=== PATIENT | female | born 1960 | race Native Hawaiian/Other Pacific Islander ===

== ENCOUNTER 2017-08-22 20:51 | Observation (INO) | payer OTHER ==
--- NOTE | 2017-08-22 21:56 | ED Physician Documentation ---
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 She developed substernal chest pain radiating to the back that is mostly gone now. It started around 4 PM. She has never had this before. There is no pedal edema or calf pain. Note made that she is allergic to aspirin and lisinopril and therefore these medications are held.) Review of Systems Ten Systems: 10 systems reviewed and negative Constitutional: reports: Reviewed and negative Nose: reports: Reviewed and negative Cardiac: reports: Reviewed and negative PD PAST MEDICAL HISTORY - Past Medical History Cardiovascular: Other Neuro: None HEENT: None Musculoskeletal: Osteoarthritis - Past Surgical History Past Surgical History: Yes Cardiovascular: AICD - Present Medications Home Medications: Ambulatory Orders Medication Instructions Recorded Confirmed Carvedilol [Coreg] 25 mg PO BID 02/09/14 04/19/14 Simvastatin [Zocor] 20 mg PO QPM 02/09/14 04/19/14 - Allergies Allergies/Adverse Reactions: Allergies Allergy/AdvReac Type Severity Reaction Status Date / Time aspirin Allergy Edema Verified 08/22/17 21:04 lisinopril Allergy Edema Verified 08/22/17 21:04 - Social History Does the pt smoke?: No Smoking Status: Never smoker Does the pt drink ETOH?: No Does the pt have substance abuse?: No - Family History Family history: reports: Non contributory PD ED PE NORMAL - Vitals Vital signs reviewed: Yes - General General: No acute distress, Other (She seems a little slow, probably from the previous anoxic brain injury. She is pleasant. Most of the history is from the .) - HEENT HEENT: PERRL, EOMI - Neck Neck: Supple, no meningeal sign, No bony TTP, No JVD - Cardiac Cardiac: RRR, No murmur - Respiratory Respiratory: No respiratory distress, Clear bilaterally - Abdomen Abdomen: Soft, Non tender - Back Back: No CVA TTP, No spinal TTP - Derm Derm: Normal color, Warm and dry - Extremities Extremities: No edema, No calf tenderness / cord - Neuro Neuro: Alert and oriented X 3, Normal speech - Psych Psych: Normal mood, Normal affect Results - Vitals Vitals: Vital Signs - 24 hr 08/22/17 20:55 Temperature 36.8 C Heart Rate 69 Respiratory 19 Rate Blood Pressure 146/100 H O2 Saturation 100 Oxygen O2 Source Room air - EKG (time done) 2131 Rate: Rate (enter#) (61) Rhythm: NSR Jenera: LAD Intervals: Other (Looks like an incomplete right bundle branch block) Ischemia: Normal ST segments - Labs Labs: Laboratory Tests 08/22/17 08/22/17 08/22/17 21:20 21:20 21:20 WBC 10.5 RBC 5.94 H Hgb 11.8 L Hct 38.3 MCV 64.5 L MCH 19.9 L MCHC 30.8 L RDW 15.9 H Plt Count 245 MPV 8.7 Neut # 6.9 H Lymph # 2.2 Gibson # 0.7 Eos # 0.6 Baso # 0.1 Absolute Nucleated RBC 0.00 Nucleated RBC % 0.0 Manual Slide Review Indicated WBC Morphology NORMAL APPEARANCE Platelet Estimate NORMAL (130-450,000) Platelet Morphology NORMAL APPEARANCE RBC Morph Micro Appear 3+ MICROCYTOSIS PT 11.3 INR 1.0 Sodium Potassium Chloride Carbon Dioxide Anion Gap BUN Creatinine Estimated GFR (MDRD) Glucose Calcium Total Bilirubin AST ALT Alkaline Phosphatase Troponin I 0.07 Total Protein Albumin Globulin Albumin/Globulin Ratio Lipase 08/22/17 21:20 WBC RBC Hgb Hct MCV MCH MCHC RDW Plt Count MPV Neut # Lymph # Gibson # Eos # Baso # Absolute Nucleated RBC Nucleated RBC % Manual Slide Review WBC Morphology Platelet Estimate Platelet Morphology RBC Morph Micro Appear PT INR Sodium 136 Potassium 4.1 Chloride 101 Carbon Dioxide 27 Anion Gap 8.0 BUN 14 Creatinine 0.5 Estimated GFR (MDRD) 127 Glucose 143 H Calcium 9.0 Total Bilirubin < 0.2 L AST 27 ALT 34 Alkaline Phosphatase 63 Troponin I Total Protein 7.9 Albumin 4.2 Globulin 3.7 Albumin/Globulin Ratio 1.1 Lipase 19 L - Rads (name of study) 1v chest Radiology: EMP read contemporaneously (NAD, AICD in place) PD MEDICAL DECISION MAKING - ED course ED course: 56-year-old woman with history of cardiac arrest and anoxic brain injury due to Takutsobus cardiomyopathy presents with improving nonsevere chest pain. Troponin is indeterminant but on the low end of did not determined. Given her risk factors etc. she will be placed in observation, spoke with the hospitalist , Dr. Graff for observation at 9:55 PM. Departure - Departure Disposition: ED Place in Observation Clinical Impression: Chest pain Qualifiers: Chest pain type: unspecified Qualified Code(s): R07.9 - Chest pain, unspecified Condition: Good
[2017-08-22 22:07] LABS: BASOPHILS # (AUTO) 0.1 10^3/uL (0.0-0.1); BASOPHILS % (AUTO) 0.9 %; EOSINOPHILS # (AUTO) 0.6 10^3/uL (0.0-0.7); EOSINOPHILS % (AUTO) 5.5 %; HGB - HEMOGLOBIN 11.8 g/dL (12.0-16.0); LYMPHOCYTES # (AUTO) 2.2 10^3/uL (1.5-3.5); LYMPHOCYTES % (AUTO) 21.2 %; MEAN CORPUSCULAR HEMOGLOBIN 19.9 pg (27.0-31.0); MEAN CORPUSCULAR HGB CONC 30.8 g/dL (32.0-36.0); MEAN CORPUSCULAR VOLUME 64.5 fL (81.0-99.0); MEAN PLATELET VOLUME 8.7 fL (7.9-10.8); MONOCYTES # (AUTO) 0.7 10^3/uL (0.0-1.0); MONOCYTES % (AUTO) 7.1 %; NEUTROPHILS # (AUTO) 6.9 10^3/uL (1.5-6.6); NEUTROPHILS % (AUTO) 65.3 %; PLT - PLATELET COUNT 245 10^3/uL (130-450); RED BLOOD COUNT 5.94 10^6/uL (4.20-5.40); RED CELL DISTRIBUTION WIDTH 15.9 % (12.0-15.0); WHITE BLOOD COUNT 10.5 x10^3/uL (4.8-10.8)
[2017-08-22 22:11] LABS: PT - PROTHROMBIN TIME 11.3 secs (9.9-12.6)
[2017-08-22 22:13] LABS: ALBUMIN 4.2 g/dL (3.2-5.5); ALBUMIN/GLOBULIN RATIO 1.1 (1.0-2.2); ALKALINE PHOSPHATASE 63 IU/L (42-121); ALT ALANINE AMINOTRANSFERASE 34 IU/L (10-60); AST ASPARTATE AMINOTRANSFERASE 27 IU/L (10-42); BILIRUBIN,TOTAL < 0.2 mg/dL (0.2-1.0); BUN - BLOOD UREA NITROGEN 14 mg/dL (6-20); CARBON DIOXIDE - CO2 27 mmol/L (21-32); CHLORIDE 101 mmol/L (101-111); CREATININE 0.5 mg/dL (0.4-1.0); GFR - MDRD 127 (>89); GLUCOSE 143 mg/dL (70-100); LIPASE 19 U/L (22-51); SODIUM 136 mmol/L (135-145); TOTAL PROTEIN 7.9 g/dL (6.7-8.2)
[2017-08-22 22:18] LABS: PLATELET ESTIMATE, MANUAL NORMAL (130-450,000) (NORMAL); PLATELET MORPHOLOGY NORMAL APPEARANCE (NORMAL); RBC MORPHOLOGY (MULTIPLE) 3+ MICROCYTOSIS (NORMAL)
--- NOTE | 2017-08-22 22:19 | XRAY Report ---
EXAM: CHEST RADIOGRAPHY EXAM DATE: 08/22/2017 10:03 PM. CLINICAL HISTORY: CHEST PAIN. COMPARISON: 07/05/2015. TECHNIQUE: 1 view. FINDINGS: Lungs/Pleura: No focal pneumonia or edema. No pleural effusion or pneumothorax. Mediastinum: Heart size not enlarged. No mediastinal shift. Other: Stable left pacemaker/AICD. IMPRESSION: No acute process seen in the chest. [facility] Referring Provider Line: [phone] SITE ID: [id number]
[2017-08-22] MEDS ORDERED: HYDROmorphone 1 MG/ML SYRINGE IVP PRN (22:27)
[2017-08-22] MEDS ORDERED: ACETAMINOPHEN 325 MG TABLET PO PRN (22:27)
[2017-08-22] MEDS ORDERED: ONDANSETRON 4 MG/2 ML VIAL IVP PRN (22:27)
[2017-08-22] MEDS ORDERED: SODIUM CHLORIDE FLUSH 0.9% 10 ML SYRINGE IVP PRN (22:27)
[2017-08-22] MEDS ORDERED: TEMAZEPAM 15 MG CAPSULE PO PRN (22:27)
[2017-08-22] MEDS ORDERED: CARVEDILOL 25 MG PO SCH (22:30)
[2017-08-22] MEDS ORDERED: CARVEDILOL 12.5 MG TABLET PO SCH (23:00)
[2017-08-22] MEDS ORDERED: IOPAMIDOL-300 100 ML VIAL ONE (23:41)
[2017-08-23] MEDS ORDERED: IOPAMIDOL-300 100 ML VIAL IVP ONE (00:14)
--- NOTE | 2017-08-23 00:39 | CT Preliminary Report ---
Exam: CT CHEST ANGIO (AORTA) IMPRESSION: 1. Negative CT angiogram of the chest. No acute aortic syndrome. 2. No pulmonary emboli. [facility] SITE ID: [id number]
--- NOTE | 2017-08-23 00:46 | CT Report ---
EXAM: CT ANGIOGRAM CHEST EXAM DATE: 08/23/2017 12:20 AM. CLINICAL HISTORY: Chest pain to back, evaluate aorta for aneurysm or dissection. COMPARISONS: None. TECHNIQUE: Prior to and following intravenous administration of 80 mL Isovue 300, multiplanar 3D/MIP reconstruction of the thoracic aorta was performed. In accordance with CT protocol optimization, one or more of the following dose reduction techniques w ere utilized for this exam: automated exposure control, adjustment of mA and/or KV based on patient s ize, or use of iterative reconstructive technique. FINDINGS: Vascular Structures: No aortic intramural hematoma, dissection, or aneurysm. No significant atheroscl erotic disease. Aortic branch vessels of the chest and upper abdomen are widely patent. No pulmonary emboli identified. Lungs/Pleura: No pneumonia or edema. No suspicious nodules. No effusions or pneumothorax. Mediastinum: No cardiac enlargement. No adenopathy. Upper Abdomen: Unremarkable. Other: None. IMPRESSION: 1. Negative CT angiogram of the chest. No acute aortic syndrome. 2. No pulmonary emboli. [facility] Referring Provider Line: [phone] SITE ID: [id number]
[2017-08-23] MEDS: SODIUM CHLORIDE FLUSH 0.9% 10 ML SYRINGE IVP SCH ×2 (01:28→08:50)
--- NOTE | 2017-08-23 02:57 | HISTORY & PHYSICAL EXAMINATION ---
DATE OF SERVICE: 08/22/2017 Physician: Ana Torres MD HISTORY OF PRESENT ILLNESS: This is a 56-year-old, white female who has a history of Takotsubo cardiomyopathy. She had suffered a cardiac arrest in 2005, the Takotsubo was probably found after that, and she has been implanted with an automatic defibrillator that has never needed to go off. The patient has suffered anoxic brain damage because of the cardiac arrest. The patient nor the know if there is still apical ballooning or if there is a decreased ejection fraction or how much damage was done to the heart, and there have been no echocardiograms done here at this facility. The patient developed chest pain across her anterior chest, radiating through to her mid back that occurred when she was sitting and resting, associated with mild nausea, but no vomiting. No other associated factors such as radiation to the neck or arms or shortness of breath. She called her at worked and he came home. The episode stopped after 30-60 minutes. She had another episode and, with this, he brought her to the emergency room. This one also subsided after about an hour. She rated the discomfort as "severe." She currently is having mild discomfort rated < 5/10, mostly in her back only. She has never had symptoms like this before. There are no new medications, no travel, no trauma. PAST MEDICAL HISTORY: Takotsubo cardiomyopathy and cardiac arrest, and now has a defibrillator, and there was anoxic brain damage with the cardiac arrest. REVIEW OF SYSTEMS: A comprehensive review of systems was performed and the pertinent positives are as above, all the rest are negative. FAMILY HISTORY: Early family history of coronary artery disease in her mother, who from this. No other inherited diseases. SOCIAL HISTORY: She is a nonsmoker who never smoked, drinks no alcohol or use illicit drugs. She is not working. ALLERGIES 1. ASPIRIN. 2. LISINOPRIL. MEDICATIONS 1. Coreg 25 p.o. b.i.d. 2. Zocor 20 mg at bedtime. PHYSICAL EXAMINATION GENERAL: Middle-aged female of descent. VITAL SIGNS: Blood pressure 146/100, heart rate 60-69 in sinus rhythm with rare PVCs, afebrile, room air saturation 100%. HEENT: Unremarkable. NECK: No JVD or carotid bruits. CHEST: Clear. HEART: Heart sounds normal. No murmur or gallop. No heave. ABDOMEN: Soft, nontender. Positive bowel sounds. EXTREMITIES: No clubbing, cyanosis, or edema. NEUROLOGIC: She has a tremor of the hands, which apparently has been there for 30 years. She is slow to respond with answers, but is appropriate and has no slurring of speech. LABORATORIES: Normal electrolytes, normal BUN and creatinine. Magnesium 2.0. Normal liver tests. Troponin 0.07. Lipase normal. CBC shows a white count of 10.5, hemoglobin 11.8, MCV very low at 64.5, platelet count normal at 245. INR normal at 1.0. Chest x-ray: No acute pulmonary disease. EKG: Normal sinus rhythm. There is excessive baseline wander, making it difficult to evaluate, but there is probable right IVCD, poor R-wave progression and anterolateral T- wave flattening. There is no old EKG available for comparison. IMPRESSION/DIAGNOSES 1. Atypical chest pain for angina. 2. Takotsubo cardiomyopathy. 3. Status post defibrillator. 4. Anoxic brain damage after a cardiac arrest. 5. Anemia with low MCV. PLAN: Place the patient in observation statusto evaluate chest pain. Start telemetry. Check troponins, since the first one is minimally elevated, to rule out OR. Follow her EKG for ischemic changes. Obtain lipid panel and treat per guidelines. Obtain an Echo to evaluate her Takotsubo history and her current EF. Obtain a CT angio of the chest to rule out aortic pathology such as aneurysm or dissection, given the fact that the pain radiates through to her back. Because the position of the pain in the back is at the lower diaphragm, I also recommend ultrasound evaluation of her gallbladder and pancreas if her CT has no obvious abnormality. DEEP VENOUS THROMBOSIS PROPHYLAXIS: Lovenox. CODE STATUS: FULL CODE. ATTESTATION: The patient is expected to be discharged or transferred to another facility within 96 hours: Yes. TD: 08/23/2017 02:57 SANTANA
[2017-08-23 07:37] VITALS: BP 125/64
[2017-08-23 07:37] LABS: BUN - BLOOD UREA NITROGEN 11 mg/dL (6-20); CARBON DIOXIDE - CO2 24 mmol/L (21-32); CHLORIDE 104 mmol/L (101-111); CHOL/HDL RATIO 3.2 (<4.4); CHOLESTEROL 166 mg/dL; CREATININE 0.7 mg/dL (0.4-1.0); GFR - MDRD 86 (>89); GLUCOSE 134 mg/dL (70-100); HDL CHOLESTEROL 52 mg/dL; LDL CHOLESTEROL,CALCULATED 106 mg/dL; SODIUM 136 mmol/L (135-145); VLDL CHOLESTEROL 8 mg/dL
[2017-08-23] MEDS ORDERED: NITROGLYCERIN 2% PASTE TOP SCH (08:00)
[2017-08-23] MEDS ORDERED: HEPARIN 5,000 UNIT/ML VIAL IVP ONE (08:06)
[2017-08-23] MEDS ORDERED: HEPARIN 5,000 UNIT/ML VIAL IVP SCH ×2 (08:06→08:25)
--- NOTE | 2017-08-23 08:24 | DISCHARGE SUMMARY ---
Discharge Summary Admit Date: 08/23/17 Discharge Date: 08/23/17 Discharging Provider: JENNIFER Lwas Primary Care Provider: Dr. Blake Franco-cardiology Code Status: Attempt Resuscitation Condition at Discharge: Good Discharge Disposition: 02 Transfer Acute Care Hosp Discharge Facility Name: [facility] under the care of Dr. Jessenia Corea - DIAGNOSES Admission Diagnoses: Other chest pain (R07.89) Takotsubo syndrome (I51.81) Presence of automatic (implantable) cardiac defibrillator (Z95.810) Anoxic brain damage, not elsewhere classified (G93.1) Discharge Diagnoses with Status of Each Condition: Other chest pain (R07.89) improved, stable at the time of transfer. Non-ST elevation (NSTEMI) myocardial infarction (I21.4) acute, new on this admission. Confirmed with elevated troponins. Takotsubo syndrome (I51.81) chronic, stable. Echocardiogram pending. Anoxic brain damage, not elsewhere classified (G93.1) chronic, stable. Patient delayed, but functional and A & O x4. Presence of automatic (implantable) cardiac defibrillator (Z95.810) chronic, stable. See Dr. Blake Franco-cardiology at [facility]. - HPI History of Present Illness: Krysten Lacy is a 56-year old female with a past medical history of Takotsubo cardiomyopathy and suffered a cardiac arrest in 2005, the Takotsubo was probably found after that, and she has been implanted with an AICD. The patient has suffered anoxic brain damage due to the cardiac arrest. The patient nor her know if there is still apical ballooning or if there is a decreased EF or how much damage was done to the heart. There have been no echocardiograms done here. The patient developed chest pain across her anterior chest, radiating through her mid back that occurred when she was sitting and resting. Associated symptoms include mild nausea, no vomiting, no radiation or shortness of breath. She called her at work and he came home. The episode stopped after 30-60 minutes. She had another episode and, with this, he brought her to the ED. She continued to have 5 out of 10 pain located mid-chest and back. She has never had symptoms like this before. There have been no new medications, no trauma, and no recent travel. She will be admitted to observation and monitored on telemetry, with serial troponins and an echocardiogram. - HOSPITAL COURSE Hospital Course: The patient had a flat T-wave on EKG. A chest CT was completed and negative for dissection, a bedside echocardiogram was completed and showed isolated akinetic apical ballooning and a preserved EF as a preliminary finding. Serial troponins confirmed a rule in NSTEMI with a troponin starting at 0.07, then increased to 0.22, and the final value is pending. Patient continued to have chest discomfort that is improved to a 2-3 out of 10 and continues to radiate to her back. She has been started on a heparin gtt, given nitropaste, put on a beta srini and awaiting transport to [place] under the care of Dr. Jessenia Corea-cardiology. She is considered to be hemodynamically stable at the time of transport using ACLS services. - ALLERGIES Allergies/Adverse Reactions: Allergies Allergy/AdvReac Type Severity Reaction Status Date / Time aspirin Allergy Edema Verified 08/22/17 21:04 lisinopril Allergy Edema Verified 08/22/17 21:04 - MEDICATIONS Home Medications: Ambulatory Orders Medication Instructions Recorded Confirmed Carvedilol [Coreg] 25 mg PO BID 02/09/14 04/19/14 Simvastatin [Zocor] 20 mg PO QPM 02/09/14 04/19/14 Carvedilol [Coreg] 25 mg PO BID tablet 08/23/17 Nitroglycerin [Nitrostat] 0.4 mg SL Q5MIN PRN tablet 08/23/17 - PHYSICAL EXAM AT DISCHARGE General Appearance: positive: No acute distress, Alert, Anxious Eyes Bilateral: positive: Normal inspection, PERRL ENT: positive: ENT inspection nml, Pharynx nml, No signs of dehydration Neck: positive: Nml inspection, Thyroid nml, No JVD, Trachea midline Respiratory: positive: Chest non-tender, No respiratory distress Cardiovascular: positive: Regular rate & rhythm, Bradycardia, Systolic murmur, Decreased pulse(s) Peripheral Pulses: positive: 1+ Abdomen: positive: Non-tender, No organomegaly, Nml bowel sounds Back: positive: Nml inspection Skin: positive: Color nml, No rash, Warm, Diaphoresis Extremities: positive: Non-tender, Full ROM, Nml appearance, No pedal edema Neurologic/Psychiatric: positive: Oriented x3, CN's nml (2-12), Motor nml, Sensation nml, Depressed mood/affect, Other (delayed, but very functional and A & O x4.) Reflexes: Bicep (R): 3+, Bicep (L): 3+ - LABS Result Diagrams: 08/22/17 21:20 08/23/17 03:01 - DIAGNOSTIC IMAGING Diagnostic Imaging Results: Final report reviewed Diagnostic Imaging Results Comments: EXAM: CT ANGIOGRAM CHEST EXAM DATE: 08/23/2017 12:20 AM. CLINICAL HISTORY: Chest pain to back, evaluate aorta for aneurysm or dissection. COMPARISONS: None. TECHNIQUE: Prior to and following intravenous administration of 80 mL Isovue 300 , multiplanar 3D/MIP reconstruction of the thoracic aorta was performed. In accordance with CT protocol optimization, one or more of the following dose reduction techniques were utilized for this exam: automated exposure control, adjustment of mA and/or KV based on patient size, or use of iterative reconstructive technique. FINDINGS: Vascular Structures: No aortic intramural hematoma, dissection, or aneurysm. No significant atherosclerotic disease. Aortic branch vessels of the chest and upper abdomen are widely patent. No pulmonary emboli identified. Lungs/Pleura: No pneumonia or edema. No suspicious nodules. No effusions or pneumothorax. Mediastinum: No cardiac enlargement. No adenopathy. Upper Abdomen: Unremarkable. Other: None. IMPRESSION: 1. Negative CT angiogram of the chest. No acute aortic syndrome. 2. No pulmonary emboli. EXAM: CHEST RADIOGRAPHY EXAM DATE: 08/22/2017 10:03 PM. CLINICAL HISTORY: CHEST PAIN. COMPARISON: 07/05/2015. TECHNIQUE: 1 view. FINDINGS: Lungs/Pleura: No focal pneumonia or edema. No pleural effusion or pneumothorax. Mediastinum: Heart size not enlarged. No mediastinal shift. Other: Stable left pacemaker/AICD. IMPRESSION: No acute process seen in the chest. ECHOCARDIOGRAM was completed but pending at the time of this report 08/23/17 @ 0900. - FOLLOW UP Follow Up: Follow up with PCP within one week of this stay. - TIME SPENT Time Spent in Discharge (Minutes): 50
[2017-08-23] MEDS ORDERED: NITROGLYCERIN SL 0.4 MG TABLET SL PRN (08:25)
[2017-08-23] MEDS ORDERED: HEPARIN DRIP CARDIAC @ 12 UNITS/KG/HR IV SCH (08:28)
[2017-08-23] MEDS ORDERED: HEPARIN BOLUS PRN PER PROTOCOL IVP (08:38)
--- NOTE | 2017-08-23 08:43 | Discharge Plan ---
Discharge Plan Disposition: 02 Transfer Acute Care Hosp Condition: Good Diet: Cardiac Activity Restrictions: Activity as Tolerated Shower Restrictions: No Driving Restrictions: No Weight Bearing: Full Weight Additional Instructions or Follow Up instructions: [facility] No Smoking: If you smoke, Please STOP! Call for help.
[2017-08-23] MEDS ORDERED: POLYETHYLENE GLYCOL 3350 17 GM PACKET PO SCH (09:00)
[2017-08-23] MEDS ORDERED: FAMOTIDINE 20 MG TABLET PO SCH (09:00)
[2017-08-23] MEDS ORDERED: CARVEDILOL 12.5 MG TABLET PO SCH (09:00)
[2017-08-23] MEDS ORDERED: ENOXAPARIN 40 MG/0.4 ML SYRINGE SUBQ SCH (09:00)
[2017-08-23] MEDS ORDERED: PERFLUTREN LIPID MICROSPHERES 1.65 MG/1.5 ML VIAL IVP ONE (09:42)
[2017-08-23] MEDS ORDERED: NON FORMULARY MED (Simvastatin [Zocor] 20 MG) PO SCH (21:00)
[2017-08-23] MEDS ORDERED: ATORVASTATIN 10 MG TABLET PO SCH (21:00)
== END 2017-08-23 11:25 | disposition short-term general hospital (02) ==
LOC: ED 20:51 → OBS 22:27
PROVIDERS: ADMIT Internal Medicine; ATTEND Nurse Practitioner
DX: I21.4 Non-ST elevation (NSTEMI) myocardial infarction (principal); I51.81 Takotsubo syndrome; G93.1 Anoxic brain damage, not elsewhere classified; Z95.810 Presence of automatic (implantable) cardiac defibrillator; Z86.74 Personal history of sudden cardiac arrest; Z79.899 Other long term (current) drug therapy
CPT/HCPCS: 36415; 71045; 71275; 80048; 80053; 80061; 83690; 83735; 84484; 85025; 85610; 93005; 93306; 96372; 96374; 99283; 99285; A9270; G0378; J1170; Q9957; Q9967; 83721; 99284

== ENCOUNTER 2017-08-23 11:25 | Outpatient (CLI) | payer OTHER | END 2017-08-23 11:26 | disposition short-term general hospital (02) | LOC: EMS 11:25 | PROVIDERS: ATTEND Surgery | DX: I20.0 Unstable angina (principal) | CPT/HCPCS: A0425; A0426 ==

== ENCOUNTER 2017-08-25 18:44 | Emergency (ER) | payer OTHER ==
[2017-08-25 18:51] VITALS: BP 117/69
[2017-08-25] MEDS ORDERED: HYDROcod/ACETAM 5/325 MG TABLET PO STA (19:15)
--- NOTE | 2017-08-25 19:18 | ED Physician Documentation ---
PD HPI HEADACHE - Stated complaint Stated Complaint: RAMIRES - Chief complaint Chief Complaint: Neuro - History obtained from History obtained from: Patient, Family () - History of Present Illness Timing - onset: Today (56-year-old woman with history of anoxic brain injury due to Takutsobus cardiomyopathy, she was seen here a few days ago with chest pain and ended up ruling in. Per the 's report she had an coronary angiogram done which showed no occlusive coronary disease but she did have a ventricular thrombus and was started on anticoagulation, specifically Eliquis. Since this morning she has had a right-sided and vertex headache that is not the worst of her life. They called the size changer and there was worry about potentially intracranial hemorrhage given her anticoagulated status and she was referred here for further evaluation and treatment. She does have a history of migraines and she does not really feel like this is worse per se.) Review of Systems Constitutional: denies: Fever, Chills Cardiac: denies: Chest pain / pressure, Palpitations Respiratory: denies: Dyspnea, Cough GI: denies: Abdominal Pain PD PAST MEDICAL HISTORY - Past Medical History Past Medical History: Yes Cardiovascular: Other Neuro: CVA, Headache/migraine Endocrine/Autoimmune: HyPOthyroidism : Other HEENT: None Musculoskeletal: Osteoarthritis - Past Surgical History Past Surgical History: Yes General: Colonoscopy Cardiovascular: AICD HEENT: Tonsil/Adenoidectomy - Present Medications Home Medications: Ambulatory Orders Medication Instructions Recorded Confirmed Simvastatin [Zocor] 20 mg PO QPM 02/09/14 04/19/14 Carvedilol [Coreg] 25 mg PO BID tablet 08/23/17 Apixaban [Eliquis] 5 mg PO BID 08/25/17 08/25/17 HYDROcod/ACETAM 5/325 [Gratiot 5/325] 1 - 2 ea PO Q6H PRN #7 tablet 08/25/17 - Allergies Allergies/Adverse Reactions: Allergies Allergy/AdvReac Type Severity Reaction Status Date / Time aspirin Allergy Edema Verified 08/25/17 18:50 lisinopril Allergy Edema Verified 08/25/17 18:50 - Social History Does the pt smoke?: No Smoking Status: Never smoker Does the pt drink ETOH?: No Does the pt have substance abuse?: No PD ED PE NORMAL - Vitals Vital signs reviewed: Yes - General General: Alert and oriented X 3, No acute distress - HEENT HEENT: PERRL, EOMI, Pharynx benign - Neck Neck: Supple, no meningeal sign, No bony TTP - Neuro Neuro: Alert and oriented X 3, repair weaver 2-12 intact, Other (Defers to her for complicated questions given her history of anoxic brain injury.) Eye Opening: Spontaneous Motor: Obeys Commands Verbal: Oriented GCS Score: 15 - Psych Psych: Normal mood, Normal affect Results - Vitals Vitals: Vital Signs - 24 hr 08/25/17 18:46 Temperature 36.7 C Heart Rate 71 Respiratory 16 Rate Blood Pressure 117/69 O2 Saturation 97 Oxygen O2 Source Room air PD MEDICAL DECISION MAKING - ED course ED course: 56-year-old woman with headache, not the worst of her life and not that atypical for her either, but the concern being that she is freshly on anticoagulation so was referred in by her size changer for cranial imaging to rule out intracranial hemorrhage and this was negative. Departure - Departure Disposition: 01 Home, Self Care Clinical Impression: Adequate anticoagulation on anticoagulant therapy Headache Qualifiers: Headache type: tension-type Headache chronicity pattern: acute headache Intractability: not intractable Qualified Code(s): G44.209 - Tension-type headache, unspecified, not intractable Condition: Good Record reviewed to determine appropriate education?: Yes Instructions: ED Cephalgia Unspecified Prescriptions: HYDROcod/ACETAM 5/325 [Gratiot 5/325] 1 - 2 ea PO Q6H PRN #7 tablet PRN Reason: Pain Comments: Call your doctor to arrange a follow-up appointment, make the next available appointment. In the interim, return anytime if worse or if new symptoms develop.
--- NOTE | 2017-08-25 19:47 | CT Report ---
EXAM: CT HEAD EXAM DATE: 08/25/2017 07:31 PM. CLINICAL HISTORY: Headache. COMPARISON: None. TECHNIQUE: Multiaxial CT images were obtained from the foramen magnum to the vertex. Reformats: Coron al. IV contrast: None. In accordance with CT protocol optimization, one or more of the following dose reduction techniques w ere utilized for this exam: automated exposure control, adjustment of mA and/or KV based on patient s ize, or use of iterative reconstructive technique. FINDINGS: Parenchyma: No intraparenchymal hemorrhage. No evidence of mass, midline shift, or CT findings of inf arction. Odom-white differentiation is distinct. Extraaxial Spaces: Normal for age. No subdural or epidural collections. Ventricles: Normal in size and position. Sinuses and Orbits: Imaged paranasal sinuses, orbits, and mastoids show no significant abnormality. Bones: Unremarkable. Other: None. IMPRESSION: Normal head CT. [facility] Referring Provider Line: [phone] SITE ID: [id number]
== END 2017-08-25 20:19 | disposition home or self-care (01) ==
LOC: ED 18:44
DX: G44.209 Tension-type headache, unspecified, not intractable (principal); Z86.73 Personal history of transient ischemic attack (TIA), and cerebral infarction without residual deficits; I51.81 Takotsubo syndrome; Z86.718 Personal history of other venous thrombosis and embolism; Z79.01 Long term (current) use of anticoagulants; E03.9 Hypothyroidism, unspecified; M19.90 Unspecified osteoarthritis, unspecified site; Z95.810 Presence of automatic (implantable) cardiac defibrillator
CPT/HCPCS: 70450; 99283; A9270

== ENCOUNTER 2018-06-08 11:00 | Outpatient (CLI) | payer OTHER | END 2018-06-08 11:01 | disposition short-term general hospital (02) | LOC: EMS 11:00 | PROVIDERS: ATTEND Surgery | DX: R07.9 Chest pain, unspecified (principal) | CPT/HCPCS: A0425; A0427 ==

== ENCOUNTER 2020-04-16 11:15 | Outpatient (CLI) | payer OTHER ==
--- NOTE | 2020-04-17 13:22 | Mammography Report ---
BILATERAL DIGITAL SCREENING MAMMOGRAM 3D/2D: 04/16/2020 CLINICAL: Family history of breast cancer. Routine screening. Comparison is made to exams dated: 04/24/2019 mammogram, 02/24/2018 mammogram, and 03/08/2017 mammogra [facility]. The tissue of both breasts is heterogeneously dense. This may lower t he sensitivity of mammography. No significant masses, calcifications, or other findings are seen in either breast. There has been no significant interval change. IMPRESSION: NEGATIVE There is no mammographic evidence of malignancy. A 1 year screening mammogram is recommended. This exam was interpreted at Station ID: [id number]. NOTE: For mammograms, a report in lay terms will be sent to the patient. Approximately 15% of breast malignancies will not be visualized mammographically. In the management of a palpable breast mass, a negative mammogram must not discourage biopsy of a clinically suspicious lesion. Electronically Signed By: Adriana cuba/penrad:04/16/2020 12:50:33 ACR BI-RADS Category 1: Negative 3341F PARENCHYMAL PATTERN: (D) - The breast(s) demonstrate(s) heterogeneously dense fibroglandular oralia lock. BI-RADS CATEGORY: (1) - 1 RECOMMENDATION: (ANNUAL) - Recommend routine annual screening mammography. [id number] 1 year screening LATERALITY: (B)
== END 2020-04-16 11:16 | disposition home or self-care (01) ==
LOC: DI.N 11:15
DX: Z12.31 Encounter for screening mammogram for malignant neoplasm of breast (principal); Z80.3 Family history of malignant neoplasm of breast
CPT/HCPCS: 77063; 77067

== ENCOUNTER 2021-11-03 11:19 | Outpatient (CLI) | payer OTHER ==
--- NOTE | 2021-11-03 13:12 | Mammography Report ---
BILATERAL DIGITAL SCREENING MAMMOGRAM 3D/2D: 11/03/2021 CLINICAL: Family history of breast cancer. Routine screening. Comparison is made to exams dated: 04/16/2020 mammogram - [facility], 04/24/2019 m eliciaram, 02/24/2018 mammogram, and 03/08/2017 mammogram - [facility]. The tissue of tatiana th breasts is heterogeneously dense. This may lower the sensitivity of mammography. No significant masses, calcifications, or other findings are seen in either breast. There has been no significant interval change. IMPRESSION: NEGATIVE There is no mammographic evidence of malignancy. A 1 year screening mammogram is recommended. This exam was interpreted at Station ID: [id number]. NOTE: For mammograms, a report in lay terms will be sent to the patient. Approximately 15% of breast malignancies will not be visualized mammographically. In the management of a palpable breast mass, a negative mammogram must not discourage biopsy of a clinically suspicious lesion. Electronically Signed By: Wes Casper M.D., jr/eleni:11/03/2021 11:55:28 ACR BI-RADS Category 1: Negative 3341F PARENCHYMAL PATTERN: (D) - The breast(s) demonstrate(s) heterogeneously dense fibroglandular parreanna lock. BI-RADS CATEGORY: (1) - 1 RECOMMENDATION: (ANNUAL) - Recommend routine annual screening mammography. [id number] 1 year screening LATERALITY: (B)
== END 2021-11-03 11:20 | disposition home or self-care (01) ==
LOC: DI.N 11:19
PROVIDERS: ATTEND Internal Medicine
DX: Z12.31 Encounter for screening mammogram for malignant neoplasm of breast (principal); Z80.3 Family history of malignant neoplasm of breast

== ENCOUNTER 2022-10-29 12:40 | Outpatient (CLI) | payer OTHER ==
--- NOTE | 2022-10-29 15:38 | XRAY Report ---
PROCEDURE: Cervical Spine Complete INDICATIONS: CERVICALGIA TECHNIQUE: 6 views of the cervical spine acquired. COMPARISON: None. FINDINGS: Bones: No fractures or dislocations to the 7 T1 level. There is trace anterolisthesis of C4 on C5. M oderate to severe disc space narrowing is present at C6-7, overall mild throughout the remainder of t he cervical spine. Prominent anterior osteophyte is present at C5. Multilevel uncovertebral arthropat hy is present. Scattered multilevel foraminal narrowing overall mild to moderate most severe at C5-6 and C6-7. Soft tissues: No prevertebral soft tissue swelling. IMPRESSION: Degenerative changes most severe at C5-6. Reviewed by: Ginger Mendieta MD on 10/29/2022 3:37 PM PDT Approved by: Ginger Mendieta MD on 10/29/2022 3:37 PM PDT Station ID: [id number]
== END 2022-10-29 12:41 | disposition home or self-care (01) ==
LOC: DI.N 12:40
PROVIDERS: ATTEND Family Medicine
DX: M47.812 Spondylosis without myelopathy or radiculopathy, cervical region (principal)

== ENCOUNTER 2022-12-01 08:15 | Outpatient (CLI) | payer OTHER ==
--- NOTE | 2022-12-01 18:10 | XRAY Report ---
PROCEDURE: Knee 3 View RT INDICATIONS: PAIN IN RIGHT KNEE TECHNIQUE: 3 views of the right knee(s) were acquired. COMPARISON: None. FINDINGS: Bones: No fractures or dislocations. No suspicious bony lesions. Soft tissues: No knee joint effusion. No suspicious soft tissue calcifications or masses. IMPRESSION: No acute bony abnormality. Reviewed by: Eric Locke MD on 12/01/2022 5:09 PM GABE Approved by: Eric Locke MD on 12/01/2022 5:09 PM AKJADE Station ID: [id number]
--- NOTE | 2022-12-01 18:12 | XRAY Report ---
PROCEDURE: Cervical Spine 2 View INDICATIONS: CERVICAL RADICULOPATHY LEFT TECHNIQUE: 3 view(s) of the cervical spine were acquired. COMPARISON: 10/29/2022 FINDINGS: Bones: No fractures or dislocations to the T1 level. The lateral masses of C1 appear intact on the odontoid view. No suspicious bony lesions. Reversal of the normal cervical lordosis present. Disc s pace narrowing and anterior osteophyte noted lower cervical spine. Soft tissues: No prevertebral soft tissue swelling. IMPRESSION: Stable degenerative disc disease and arthropathy Reviewed by: Eric Locke MD on 12/01/2022 5:11 PM GABE Approved by: Eric Locke MD on 12/01/2022 5:11 PM GABE Station ID: [id number]
== END 2022-12-01 08:16 | disposition home or self-care (01) ==
LOC: DI.N 08:15
PROVIDERS: ATTEND Registered Nurse
DX: M25.561 Pain in right knee (principal); M47.22 Other spondylosis with radiculopathy, cervical region; M50.10 Cervical disc disorder with radiculopathy, unspecified cervical region

== ENCOUNTER 2023-04-19 11:37 | Day surgery (SDC) | payer OTHER ==
[2023-04-19] MEDS ORDERED: LACTATED RINGERS 1,000 ML IV ONE ×2 (11:43→14:49)
--- NOTE | 2023-04-19 13:40 | ANESTHESIA ---
Pre-Anesthesia VS, & Labs - Diagnosis screening - Procedure colonoscopy Vital Signs: Temp Pulse Resp BP Pulse Ox O2 Flow Rate 36.3 C L 75 20 139/90 H 99 04/19/23 11:48 04/19/23 11:48 04/19/23 11:48 04/19/23 11:48 04/19/23 11:48 Height: 5 ft Weight (kg): 59.5 kg Body Mass Index: 25.6 BMI Classification: Overweight - NPO >8 hours Last Fluid Intake: am prep - Is Patient ?: No - Lab Results Lab results reviewed: Yes Home Medications and Allergies Home Medications: Ambulatory Orders Cholecalciferol (Vitamin D3) [Vitamin D3] 1,250 mcg PO DAILY 04/18/23 Simvastatin [Zocor] 20 mg PO QPM 02/09/14 Apixaban [Eliquis] 5 mg PO BID 08/25/17 Cholecalciferol (Vitamin D3) [Vitamin D3] 1,250 mcg PO DAILY 04/18/23 Allergies/Adverse Reactions: Allergies Allergy/AdvReac Type Severity Reaction Status Date / Time aspirin Allergy Edema Verified 08/25/17 18:50 lisinopril Allergy Edema Verified 08/25/17 18:50 Anes History & Medical History - Anesthetic History Anesthesia Complications: reports: No previous complications Family history of Anesthesia Complications: Denies Family history of Malignant Hyperthermia: Denies - Medical History Cardiovascular: reports: ID, Other Pulmonary: reports: None Gastrointestinal: reports: None Urinary: Musculoskeletal: reports: Osteoarthritis Endocrine/Autoimmune: reports: HyPOthyroidism Skin: reports: None Smoking Status: Never smoker History of Cancer?: No - Surgical History General: reports: Colonoscopy Eyes Ears Nose Throat (EENT): reports: Tonsil/Adenoidectomy Cardiothoracic: reports: AICD (battery exchange ) Exam General: Alert, Oriented x3, Cooperative Dental: WNL Mouth Openin Fingerbreadth Neck Mobility: Normal Mallampati classification: II Thyromental Distance: 4-6 cm Respiratory: Lungs clear, Normal breath sounds, No respiratory distress Neurological: Normal speech Mental/Cognitive Status: Alert/Oriented X3, Normal for patient Cognitive Status: Within normal limits Plan Anesthesia Type: Total IV Consent for Procedure(s) Verified and Reviewed: Yes Code Status: Attempt Resuscitation ASA classification: 3-Severe systemic disease Is this case an emergency?: No
[2023-04-19] MEDS ORDERED: PROPOFOL 500 MG/50 ML 500 MG/50 ML VIAL ONE (14:16)
[2023-04-19] MEDS ORDERED: MIDAZOLAM 2 MG/2 ML VIAL ONE (14:27)
[2023-04-19 15:05] VITALS: O2SAT 100
--- NOTE | 2023-04-19 15:08 | ANESTHESIA POST OP EVALUATION ---
Anesthesia Post Eval - Post Anesthesia Eval Vitals: Last Vital Signs Temp 36.2 C L 04/19/23 14:50 Pulse 82 04/19/23 14:59 Resp 14 04/19/23 14:59 BP 143/85 H 04/19/23 14:59 Pulse Ox 100 04/19/23 14:59 O2 Flow Rate CV Function Including HR & BP: Stable Pain Control: Satisfactory Nausea & Vomiting: Negative Mental Status: Baseline Respiratory Status: Airway Patent Hydration Status: Satisfactory Anesthesia Complications: None
[2023-04-19 15:23] VITALS: BP 120/64
== END 2023-04-19 11:38 | disposition home or self-care (01) ==
LOC: SDS 11:37
PROVIDERS: ATTEND Surgery
PROC: 0DBN8ZZ Excision of Sigmoid Colon, Via Natural or Artificial Opening Endoscopic (ICD-10-PCS; 2023-04-19)
PROC: 0DBM8ZZ Excision of Descending Colon, Via Natural or Artificial Opening Endoscopic (ICD-10-PCS; principal; 2023-04-19 14:45)
DX: Z12.11 Encounter for screening for malignant neoplasm of colon (principal); D12.4 Benign neoplasm of descending colon; K63.5 Polyp of colon; Z95.810 Presence of automatic (implantable) cardiac defibrillator
CPT/HCPCS: 45380; J7120

== ENCOUNTER 2023-12-18 20:49 | Outpatient (CLI) | payer OTHER | END 2023-12-18 20:50 | disposition EMS.NT | LOC: EMS 20:49 | DX: Z03.89 Encounter for observation for other suspected diseases and conditions ruled out (principal) ==

== ENCOUNTER 2024-01-30 07:55 | Outpatient (CLI) | payer OTHER ==
[2024-01-30 12:56] LABS: BASOPHILS # (AUTO) 0.1 10^3/uL (0.0-0.1); EOSINOPHILS # (AUTO) 0.5 10^3/uL (0.0-0.7); EOSINOPHILS % (AUTO) 5.3 %; HCT - HEMATOCRIT 41.7 % (37.0-47.0); HGB - HEMOGLOBIN 12.2 g/dL (12.0-16.0); LYMPHOCYTES # (AUTO) 2.4 10^3/uL (1.5-3.5); LYMPHOCYTES % (AUTO) 27.5 %; MEAN CORPUSCULAR HEMOGLOBIN 20.3 pg (27.0-31.0); MEAN CORPUSCULAR HGB CONC 29.3 g/dL (32.0-36.0); MEAN CORPUSCULAR VOLUME 69.5 fL (81.0-99.0); MEAN PLATELET VOLUME 11.5 fL (7.9-10.8); MONOCYTES # (AUTO) 0.8 10^3/uL (0.0-1.0); MONOCYTES % (AUTO) 8.7 %; NEUTROPHILS # (AUTO) 4.9 10^3/uL (1.5-6.6); NEUTROPHILS % (AUTO) 57.3 %; PLT - PLATELET COUNT 192 10^3/uL (130-450); RED CELL DISTRIBUTION WIDTH 17.2 % (12.0-15.0); WHITE BLOOD COUNT 8.6 x10^3/uL (4.8-10.8)
[2024-01-30 13:34] LABS: ALBUMIN 4.1 g/dL (3.2-5.5); ALBUMIN/GLOBULIN RATIO 1.3 (1.0-2.2); ALKALINE PHOSPHATASE 91 IU/L (42-121); ALT ALANINE AMINOTRANSFERASE 22 IU/L (10-60); AST ASPARTATE AMINOTRANSFERASE 17 IU/L (10-42); BILIRUBIN,TOTAL 0.7 mg/dL (0.2-1.0); BUN - BLOOD UREA NITROGEN 11 mg/dL (6-20); CALCIUM 9.2 mg/dL (8.5-10.3); CARBON DIOXIDE - CO2 31 mmol/L (21-32); CHLORIDE 107 mmol/L (101-111); CHOL/HDL RATIO 2.6 (<4.4); CHOLESTEROL 148 mg/dL; CREATININE 0.6 mg/dL (0.6-1.3); GFR - MDRD 101 (>89); GLUCOSE 96 mg/dL (74-104); HDL CHOLESTEROL 58 mg/dL; LDL CHOLESTEROL,CALCULATED 77 mg/dL; LDL/HDL RATIO 1.3 (<4.4); POTASSIUM 4.2 mmol/L (3.5-4.5); SODIUM 142 mmol/L (135-145); TOTAL PROTEIN 7.3 g/dL (6.4-8.9); TRIGLYCERIDES 67 mg/dL; VLDL CHOLESTEROL 13 mg/dL
[2024-01-30 13:53] LABS: THYROID STIMULATING HORMONE 2.72 uIU/mL (0.34-5.60)
== END 2024-01-30 07:56 | disposition home or self-care (01) ==
LOC: LAB.N 07:55
PROVIDERS: ATTEND Family Medicine
DX: I25.10 Atherosclerotic heart disease of native coronary artery without angina pectoris (principal); Z86.74 Personal history of sudden cardiac arrest; Z95.810 Presence of automatic (implantable) cardiac defibrillator; Z90.09 Acquired absence of other part of head and neck; I51.3 Intracardiac thrombosis, not elsewhere classified; I42.9 Cardiomyopathy, unspecified
CPT/HCPCS: 36415; 80053; 80061; 83721; 84443; 85025